=== PATIENT | female | born 1985 | race Caucasian/White ===

== ENCOUNTER 2021-02-06 04:14 | Emergency (ER) | payer OTHER ==
[2021-02-06 05:01] LABS: HEMOGLOBIN 14.3 gm/dl (12.3-15.3); RED BLOOD COUNT 4.36 M/UL (4.00-5.10); WHITE BLOOD COUNT 9.1 K/UL (4.5-11.0)
[2021-02-06 05:19] LABS: BUN/CREATININE RATIO 26 (0-10)
[2021-02-06] MEDS ORDERED: IBUPROFEN800 MG PO (09:48)
[2021-02-06] MEDS ORDERED: ZOFRAN ODT 4 MG4 MG PO (09:48)
[2021-02-06] MEDS ORDERED: MACROBID 100 M100 MG PO (09:48)
== END 2021-02-06 09:54 | disposition home or self-care (01) ==
LOC: ER1 04:14
PROVIDERS: Emergency Medicine
DX: N39.0 Urinary tract infection, site not specified (principal); F17.210 Nicotine dependence, cigarettes, uncomplicated; Z88.8 Allergy status to other drugs, medicaments and biological substances; Z88.1 Allergy status to other antibiotic agents
CPT/HCPCS: 76830; 80053; 81001; 83690; 85025; 87086; 96374; 96375; 96376; 99284; J2270; J2405; Q9967

== ENCOUNTER → 2021-09-18 20:24 | Emergency (ER) | payer OTHER ==
[~2021-09-18 20:24] MED LIST: IBUPROFEN800 MG PO; MACROBID 100 M100 MG PO; ZOFRAN ODT 4 MG4 MG PO
[2021-09-18 20:41] LABS: HEMOGLOBIN 13.8 gm/dl (12.3-15.3); RED BLOOD COUNT 4.14 M/UL (4.00-5.10); WHITE BLOOD COUNT 11.7 K/UL (4.5-11.0)
[2021-09-18 21:15] LABS: BUN/CREATININE RATIO 21 (0-10)
== END | disposition left against medical advice (07) ==
LOC: ER1 20:24
PROVIDERS: Physician Assistant
DX: R10.32 Left lower quadrant pain (principal); F17.210 Nicotine dependence, cigarettes, uncomplicated; Z88.5 Allergy status to narcotic agent; Z88.8 Allergy status to other drugs, medicaments and biological substances
CPT/HCPCS: 80053; 82150; 83690; 85025; 99284

== ENCOUNTER → 2022-02-08 | Outpatient (CLI) | payer OTHER ==
[2022-02-08 11:38] LABS: RED BLOOD COUNT 3.99 M/UL (4.00-5.10); WHITE BLOOD COUNT 7.4 K/UL (4.5-11.0)
== END ==
LOC: OPSV2 10:00
PROVIDERS: Obstetrics & Gynecology
DX: Z01.812 Encounter for preprocedural laboratory examination (principal); N85.7 Hematometra
CPT/HCPCS: 81001; 85025

== ENCOUNTER 2022-02-12 05:17 | Day surgery (SDC) | payer OTHER ==
[~2022-02-12] VITALS: Ht 182.9 cm; Wt 78.5 kg
[2022-02-12] MEDS ORDERED: COLACE100 MG PO (10:00)
[2022-02-12] MEDS ORDERED: PERCOCET 10-321 EACH PO (10:00)
[2022-02-12] MEDS ORDERED: IBUPROFEN600 MG PO (10:00)
[2022-02-12] MEDS ORDERED: TYLENOL 8 HOUR650 MG PO (10:03)
== END 2022-02-13 13:10 | disposition home or self-care (01) ==
LOC: OR 05:17 → MED SURG 4 10:41 → OR 02-13 13:10
DX: D25.9 Leiomyoma of uterus, unspecified (principal); N85.7 Hematometra; R10.2 Pelvic and perineal pain; F17.210 Nicotine dependence, cigarettes, uncomplicated; Z98.51 Tubal ligation status; Z88.1 Allergy status to other antibiotic agents; Z88.5 Allergy status to narcotic agent; Z88.8 Allergy status to other drugs, medicaments and biological substances; Z91.040 Latex allergy status
CPT/HCPCS: C1769; J0690; J1100; J1170; J1885; J2001; J2250; J2370; J2405; J2704; J2795; J3010; J7120

== ENCOUNTER 2022-02-24 11:46 | Emergency (ER) | payer OTHER ==
[~2022-02-24 11:46] MED LIST changes: +COLACE100 MG PO; +IBUPROFEN600 MG PO; +PERCOCET 10-321 EACH PO; +TYLENOL 8 HOUR650 MG PO
[2022-02-24 13:46] LABS: HEMOGLOBIN 12.7 gm/dl (12.3-15.3); RED BLOOD COUNT 3.88 M/UL (4.00-5.10); WHITE BLOOD COUNT 8.3 K/UL (4.5-11.0)
[2022-02-24 14:08] LABS: BUN/CREATININE RATIO 26 (0-10)
[2022-02-24] MEDS ORDERED: CEPHALEXIN500 M1 PO (18:55)
== END 2022-02-24 19:45 | disposition home or self-care (01) ==
LOC: ER1 11:46
PROVIDERS: Physician Assistant
DX: N99.820 Postprocedural hemorrhage of a genitourinary system organ or structure following a genitourinary system procedure (principal); N39.0 Urinary tract infection, site not specified; F17.200 Nicotine dependence, unspecified, uncomplicated; Z88.5 Allergy status to narcotic agent; Z91.040 Latex allergy status; Z88.1 Allergy status to other antibiotic agents; Y83.8 Other surgical procedures as the cause of abnormal reaction of the patient, or of later complication, without mention of misadventure at the time of the procedure
CPT/HCPCS: 80053; 81001; 85025; 85610; 85730; 99284; Q9967

== ENCOUNTER 2022-05-01 20:51 | Emergency (ER) | payer OTHER ==
[~2022-05-01 20:51] MED LIST changes: +CEPHALEXIN500 M1 PO
== END 2022-05-01 22:40 | disposition home or self-care (01) ==
LOC: ER1 20:51
DX: R09.81 Nasal congestion (principal); R51.9 Headache, unspecified; Z20.822 Contact with and (suspected) exposure to COVID-19; F17.200 Nicotine dependence, unspecified, uncomplicated; Z88.1 Allergy status to other antibiotic agents; Z91.040 Latex allergy status; Z88.5 Allergy status to narcotic agent
CPT/HCPCS: 0240U; 87081; 87880; 99283